=== PATIENT | male | born 1980 | race African-American/Black ===

== ENCOUNTER 2017-02-25 22:10 | Emergency (ER) | payer SELFPAY ==
[~2017-02-25] VITALS: Ht 167.6 cm; Wt 61.2 kg
[2017-02-25 22:25] VITALS: BP 133/66
--- NOTE | 2017-02-25 22:38 | PHYS DOC ---
Past Medical History Past Medical History: Asthma, Diabetes-Type II, Seizure Past Surgical History: No Surgical History Alcohol Use: Occasionally Drug Use: None Adult General Chief Complaint Chief Complaint: LOWER EXT PAIN HPI HPI Patient is a 36 year old homeless man with history of asthma and diabetes type 2 who presents complaining of bilateral feet sharp shooting pain for 3 weeks. Patient states he walks all rids on his bicycle due to his homeless situation. Denies any known injury. Review of Systems Review of Systems Constitutional: Denies fever or chills [] Eyes: Denies change in visual acuity, redness, or eye pain [] HENT: Denies nasal congestion or sore throat [] Respiratory: Denies cough or shortness of breath [] Cardiovascular: No additional information not addressed in HPI [] GI: Denies abdominal pain, nausea, vomiting, bloody stools or diarrhea [] : Denies dysuria or hematuria [] Musculoskeletal:bilateral feet sharp shooting pain Integument: Denies rash or skin lesions [] Neurologic: Denies headache, focal weakness or sensory changes [] All other systems were reviewed and found to be within normal limits, except as documented in this note. Allergies Allergies Allergies Coded Allergies Type Severity Reaction Last Updated Verified shellfish derived Allergy Unknown 02/25/17 No Physical Exam Physical Exam Constitutional: Well developed, well nourished, no acute distress, non-toxic appearance. [] HENT: Normocephalic, atraumatic, bilateral external ears normal, oropharynx moist, no oral exudates, nose normal. [] Eyes: PERRLA, EOMI, conjunctiva normal, no discharge. [] Neck: Normal range of motion, no tenderness, supple, no stridor. [] Cardiovascular:Heart rate regular rhythm, no murmur [] Lungs & Thorax: Bilateral breath sounds clear to auscultation [] Abdomen: Bowel sounds normal, soft, no tenderness, no masses, no pulsatile masses. [] Skin: Warm, dry, no erythema, no rash. [] Back: No tenderness, no CVA tenderness. [] Extremities: Bilateral feet with no obvious deformity. Obvious calluses noted on bilateral plantar aspect of the feet. Feet are warm to the touch. Full range of motion to bilateral lower extremities. +2 bilateral pedal pulses. Cap refill less than 2 seconds bilateral lower extremities. Neurologic: Alert and oriented X 3, normal motor function, normal sensory function, no focal deficits noted. [] Psychologic: Affect normal, judgement normal, mood normal. [] Current Patient Data Vital Signs Vital Signs Date Time Temp Pulse Resp B/P (MAP) Pulse Ox O2 Delivery O2 Flow Rate FiO2 02/25/17 22:25 98.2 100 18 98 Room Air 98.2 Lab Values Laboratory Tests Test 02/25/17 22:33 Glucose (Fingerstick) 144 mg/dL (70-99) H EKG EKG [] Radiology/Procedures Radiology/Procedures [] Course & Med Decision Making Course & Med Decision Making Pertinent Labs and Imaging studies reviewed. (See chart for details) Patient is in the ED with bilateral feet shooting pain for 3 weeks. He is homeless and walks for long hours or rides his bicycle. Hx of DM II. BG 140. Feet have callouses otherwise no acute findings he likely has neuropathy from diabetes. D/C with Gabapentin. F/u with local clinics Dragon Disclaimer Dragon Disclaimer This electronic medical record was generated, in whole or in part, using a voice recognition dictation system. Departure Departure Impression: Primary Impression: Homeless Additional Impressions: Neuropathy Callus of foot Disposition: HOME, SELF-CARE Condition: STABLE Referrals: NO PCP (PCP) follow up with [facility] in 1-2 weeks Patient Instructions: Diabetic Neuropathy Additional Instructions: You were seen with feet pain. You probably have diabetes neuropathy causing you pain plus callus on your feet. Take the prescribed medicines as ordered. You can also take Tylenol/ Motrin. Follow-up with a primary care doctor in 1-2 weeks. Ensure you are wearing warm comfortable shoes. Scripts Gabapentin (GABAPENTIN) 300 Mg Capsule 300 MG PO TID, #30 CAP Prov: MELINA ANAND APRN 02/25/17 Problem Qualifiers CHENGMELINA JENI Feb 25, 2017 22:38
[2017-02-25] MEDS ORDERED: GABA-586 PO (22:45)
== END 2017-02-25 23:00 | disposition home or self-care (01) ==
LOC: ER 22:10
DX: L84 Corns and callosities (principal); E11.40 Type 2 diabetes mellitus with diabetic neuropathy, unspecified; J45.909 Unspecified asthma, uncomplicated; Z59.0 Homelessness; Z91.013 Allergy to seafood
CPT/HCPCS: 82962; 99283